=== PATIENT | female | born 1950 | race Caucasian/White ===

== ENCOUNTER 2024-02-25 07:34 | Day surgery (SDC) | payer MEDICARE ==
[~2024-02-25] VITALS: Ht 157.5 cm; Wt 102.5 kg
[~2024-02-25 07:34] MED LIST: ALLEGRA HIVES180 MG; BIOTIN1000 MCG OR; CLA1000 MG OR; DOXYCYCL HYC100 MG PO; FEXOFENADINE180 MG PO; FISH OIL1000 MG PO; GLUCOSAMINE1 TA1 OR; MULTIVITAM10 OR; NORITATE1 %; PREDNISONE20 MG PO; WELLBUTRIN XL300 MG PO
[2024-02-25] MEDS ORDERED: FAMOTIDINE 10MG/ML 2ML SDV IV ONE (07:59)
[2024-02-25] MEDS ORDERED: LACTATED RINGER'S 1,000 ML IV ONE (08:00)
[2024-02-25] MEDS ORDERED: GOLYTELY PO (09:06)
[2024-02-25] MEDS ORDERED: LIDOCAINE HCL 2% 2ML SDV IV ONE (09:23)
[2024-02-25] MEDS ORDERED: PROPOFOL 200 MG/20 ML VIAL IV ONE (09:23)
[2024-02-25 09:43] VITALS: BP 145/76
== END 2024-02-25 10:01 | disposition home or self-care (01) ==
LOC: ENDO 07:34
PROVIDERS: ATTEND Surgery
PROC: 0DJD8ZZ Inspection of Lower Intestinal Tract, Via Natural or Artificial Opening Endoscopic (ICD-10-PCS; principal; 2024-02-25)
DX: Z12.11 Encounter for screening for malignant neoplasm of colon (principal)

== ENCOUNTER 2024-02-26 06:51 | Day surgery (SDC) | payer MEDICARE ==
[~2024-02-26] VITALS: Ht 157.5 cm; Wt 102.5 kg
[~2024-02-26 06:51] MED LIST changes: +GOLYTELY PO
[2024-02-26] MEDS ORDERED: LACTATED RINGER'S 1,000 ML IV ONE (06:59)
[2024-02-26] MEDS ORDERED: FAMOTIDINE 10MG/ML 2ML SDV IV ONE (07:13)
[2024-02-26 08:52] VITALS: BP 127/84
[2024-02-26] MEDS ORDERED: LIDOCAINE HCL 2% 2ML SDV IV ONE (09:50)
[2024-02-26] MEDS ORDERED: PROPOFOL 200 MG/20 ML VIAL IV ONE (09:50)
== END 2024-02-26 09:03 | disposition home or self-care (01) ==
LOC: ENDO 06:51
PROVIDERS: ATTEND Surgery
PROC: 0DJD8ZZ Inspection of Lower Intestinal Tract, Via Natural or Artificial Opening Endoscopic (ICD-10-PCS; principal; 2024-02-26)
DX: Z12.11 Encounter for screening for malignant neoplasm of colon (principal); K64.8 Other hemorrhoids